=== PATIENT | female | born 1940 | race Caucasian/White ===

== ENCOUNTER 2017-08-08 10:26 | Outpatient (CLI) | payer MEDICARE ==
[~2017-08-08 10:26] MED LIST: ALB0.5UD IH; CALC625T31 PO; CALCIUM PO; CIPR-259 PO; CRAN200C PO; DIVA500T4 PO; ESOM20CA PO; GABA-530 PEG; LEVE750T6 PEG; LEVO125T PO; MAGN400O6 PO; MULT-1085 PEG; SACC250C; SENN-93 PO; SERT25TA PEG
== END 2017-08-08 11:30 | disposition home or self-care (01) ==
LOC: WOUND CARE 10:26
PROVIDERS: ATTEND Surgery
DX: L89.622 Pressure ulcer of left heel, stage 2 (principal); I11.0 Hypertensive heart disease with heart failure; I50.31 Acute diastolic (congestive) heart failure; E03.9 Hypothyroidism, unspecified; F03.90 Unspecified dementia, unspecified severity, without behavioral disturbance, psychotic disturbance, mood disturbance, and anxiety; Z79.82 Long term (current) use of aspirin; Z79.899 Other long term (current) drug therapy; Z96.642 Presence of left artificial hip joint; Z86.73 Personal history of transient ischemic attack (TIA), and cerebral infarction without residual deficits
CPT/HCPCS: 99211; A6021; A6206; A6209; A6446

== ENCOUNTER 2017-08-16 10:55 | Outpatient (CLI) | payer MEDICARE | END 2017-08-16 13:12 | disposition home or self-care (01) | LOC: WOUND CARE 10:55 | PROVIDERS: ATTEND Surgery | DX: L89.622 Pressure ulcer of left heel, stage 2 (principal); I11.0 Hypertensive heart disease with heart failure; I50.31 Acute diastolic (congestive) heart failure; E03.9 Hypothyroidism, unspecified; F03.90 Unspecified dementia, unspecified severity, without behavioral disturbance, psychotic disturbance, mood disturbance, and anxiety; Z79.82 Long term (current) use of aspirin; Z79.899 Other long term (current) drug therapy; Z96.642 Presence of left artificial hip joint; Z86.73 Personal history of transient ischemic attack (TIA), and cerebral infarction without residual deficits | CPT/HCPCS: 99215; A6021; A6206; A6212 ==

== ENCOUNTER 2017-08-30 10:56 | Outpatient (CLI) | payer MEDICARE ==
[~2017-08-30 10:56] MED LIST changes: -CIPR-259 PO
== END 2017-08-30 12:46 | disposition home or self-care (01) ==
LOC: WOUND CARE 10:56 → EDSTATUS 11:00 → WOUND CARE 12:46
PROVIDERS: ATTEND Surgery
DX: L89.622 Pressure ulcer of left heel, stage 2 (principal); I11.0 Hypertensive heart disease with heart failure; I50.31 Acute diastolic (congestive) heart failure; E03.9 Hypothyroidism, unspecified; F03.90 Unspecified dementia, unspecified severity, without behavioral disturbance, psychotic disturbance, mood disturbance, and anxiety; Z79.82 Long term (current) use of aspirin; Z79.899 Other long term (current) drug therapy; Z96.642 Presence of left artificial hip joint; Z86.73 Personal history of transient ischemic attack (TIA), and cerebral infarction without residual deficits
CPT/HCPCS: 99215; A6212

== ENCOUNTER 2017-09-19 08:56 | Day surgery (SDC) | payer MEDICARE ==
[2017-09-19] MEDS: LIDOcaine 2% 5ml jelly ONE (09:55)
== END 2017-09-19 11:30 | disposition home or self-care (01) ==
LOC: WOUND CARE 08:56
PROVIDERS: ATTEND Surgery
DX: L89.622 Pressure ulcer of left heel, stage 2 (principal); I11.0 Hypertensive heart disease with heart failure; I50.31 Acute diastolic (congestive) heart failure; E03.9 Hypothyroidism, unspecified; F03.90 Unspecified dementia, unspecified severity, without behavioral disturbance, psychotic disturbance, mood disturbance, and anxiety; Z79.82 Long term (current) use of aspirin; Z79.899 Other long term (current) drug therapy; Z96.642 Presence of left artificial hip joint; Z86.73 Personal history of transient ischemic attack (TIA), and cerebral infarction without residual deficits
CPT/HCPCS: 11042; A6021; A6206; A6212

== ENCOUNTER 2017-09-25 09:45 | Day surgery (SDC) | payer MEDICARE ==
[2017-09-25] MEDS ORDERED: LIDOcaine 2% 5ml jelly ONE (10:35)
== END 2017-09-25 10:58 | disposition home or self-care (01) ==
LOC: WOUND CARE 09:45
PROVIDERS: ATTEND Surgery
DX: L89.622 Pressure ulcer of left heel, stage 2 (principal); I11.0 Hypertensive heart disease with heart failure; I50.31 Acute diastolic (congestive) heart failure; E03.9 Hypothyroidism, unspecified; F03.90 Unspecified dementia, unspecified severity, without behavioral disturbance, psychotic disturbance, mood disturbance, and anxiety; Z79.82 Long term (current) use of aspirin; Z79.899 Other long term (current) drug therapy; Z96.642 Presence of left artificial hip joint; Z86.73 Personal history of transient ischemic attack (TIA), and cerebral infarction without residual deficits
CPT/HCPCS: 11042; A6021; A6206; A6212

== ENCOUNTER 2017-10-02 09:38 | Day surgery (SDC) | payer MEDICARE ==
[2017-10-02] MEDS ORDERED: LIDOcaine 2% 5ml jelly ONE (10:00)
== END 2017-10-02 11:25 | disposition home or self-care (01) ==
LOC: WOUND CARE 09:38
PROVIDERS: ATTEND Surgery
DX: L89.622 Pressure ulcer of left heel, stage 2 (principal); I11.0 Hypertensive heart disease with heart failure; I50.31 Acute diastolic (congestive) heart failure; E03.9 Hypothyroidism, unspecified; F03.90 Unspecified dementia, unspecified severity, without behavioral disturbance, psychotic disturbance, mood disturbance, and anxiety; Z79.82 Long term (current) use of aspirin; Z79.899 Other long term (current) drug therapy; Z96.642 Presence of left artificial hip joint; Z86.73 Personal history of transient ischemic attack (TIA), and cerebral infarction without residual deficits
CPT/HCPCS: 97597; A6021; A6206

== ENCOUNTER 2017-10-09 09:20 | Outpatient (CLI) | payer MEDICARE | END 2017-10-09 10:19 | disposition home or self-care (01) | LOC: WOUND CARE 09:20 → EDSTATUS 09:30 → WOUND CARE 10:19 | PROVIDERS: ATTEND Surgery | DX: L89.624 Pressure ulcer of left heel, stage 4 (principal); I11.0 Hypertensive heart disease with heart failure; I50.31 Acute diastolic (congestive) heart failure; E03.9 Hypothyroidism, unspecified; F03.90 Unspecified dementia, unspecified severity, without behavioral disturbance, psychotic disturbance, mood disturbance, and anxiety; Z79.82 Long term (current) use of aspirin; Z79.899 Other long term (current) drug therapy; Z96.642 Presence of left artificial hip joint; Z86.73 Personal history of transient ischemic attack (TIA), and cerebral infarction without residual deficits | CPT/HCPCS: 99215; A6021; A6206; A6212 ==

== ENCOUNTER 2017-10-22 09:51 | Outpatient (CLI) | payer MEDICARE | END 2017-10-22 11:03 | disposition home or self-care (01) | LOC: WOUND CARE 09:51 | PROVIDERS: ATTEND Surgery | DX: L89.624 Pressure ulcer of left heel, stage 4 (principal); I11.0 Hypertensive heart disease with heart failure; I50.31 Acute diastolic (congestive) heart failure; E03.9 Hypothyroidism, unspecified; F03.90 Unspecified dementia, unspecified severity, without behavioral disturbance, psychotic disturbance, mood disturbance, and anxiety; Z79.82 Long term (current) use of aspirin; Z79.899 Other long term (current) drug therapy; Z96.642 Presence of left artificial hip joint; Z86.73 Personal history of transient ischemic attack (TIA), and cerebral infarction without residual deficits | CPT/HCPCS: 99211; A6021; A6206; A6212 ==

== ENCOUNTER 2017-10-29 10:05 | Outpatient (CLI) | payer MEDICARE | END 2017-10-29 12:20 | disposition home or self-care (01) | LOC: WOUND CARE 10:05 | PROVIDERS: ATTEND Surgery | DX: L89.624 Pressure ulcer of left heel, stage 4 (principal); I11.0 Hypertensive heart disease with heart failure; I50.31 Acute diastolic (congestive) heart failure; E03.9 Hypothyroidism, unspecified; F03.90 Unspecified dementia, unspecified severity, without behavioral disturbance, psychotic disturbance, mood disturbance, and anxiety; Z79.82 Long term (current) use of aspirin; Z79.899 Other long term (current) drug therapy; Z96.642 Presence of left artificial hip joint; Z86.73 Personal history of transient ischemic attack (TIA), and cerebral infarction without residual deficits | CPT/HCPCS: 99215 ==

== ENCOUNTER 2017-11-21 10:29 | Day surgery (SDC) | payer MEDICARE | END 2017-11-21 11:56 | disposition home or self-care (01) | LOC: WOUND CARE 10:29 → EDSTATUS 10:30 → WOUND CARE 11:56 | PROVIDERS: ATTEND Surgery | DX: L89.624 Pressure ulcer of left heel, stage 4 (principal); I11.0 Hypertensive heart disease with heart failure; I50.31 Acute diastolic (congestive) heart failure; E03.9 Hypothyroidism, unspecified; F03.90 Unspecified dementia, unspecified severity, without behavioral disturbance, psychotic disturbance, mood disturbance, and anxiety; Z79.82 Long term (current) use of aspirin; Z79.899 Other long term (current) drug therapy; Z96.642 Presence of left artificial hip joint; Z86.73 Personal history of transient ischemic attack (TIA), and cerebral infarction without residual deficits | CPT/HCPCS: 97597; A6021; A6206; A6212 ==

== ENCOUNTER 2017-11-28 10:33 | Outpatient (CLI) | payer MEDICARE | END 2017-11-28 11:51 | disposition home or self-care (01) | LOC: WOUND CARE 10:33 | PROVIDERS: ATTEND Surgery | DX: L89.624 Pressure ulcer of left heel, stage 4 (principal); I11.0 Hypertensive heart disease with heart failure; I50.31 Acute diastolic (congestive) heart failure; E03.9 Hypothyroidism, unspecified; F03.90 Unspecified dementia, unspecified severity, without behavioral disturbance, psychotic disturbance, mood disturbance, and anxiety; Z79.82 Long term (current) use of aspirin; Z79.899 Other long term (current) drug therapy; Z96.642 Presence of left artificial hip joint; Z86.73 Personal history of transient ischemic attack (TIA), and cerebral infarction without residual deficits | CPT/HCPCS: 99215; A6196 ==

== ENCOUNTER 2017-12-05 10:30 | Outpatient (CLI) | payer MEDICARE | END 2017-12-05 11:56 | disposition home or self-care (01) | LOC: WOUND CARE 10:30 → EDSTATUS 10:30 → WOUND CARE 11:56 | PROVIDERS: ATTEND Surgery | DX: L89.624 Pressure ulcer of left heel, stage 4 (principal); I11.0 Hypertensive heart disease with heart failure; I50.31 Acute diastolic (congestive) heart failure; E03.9 Hypothyroidism, unspecified; F03.90 Unspecified dementia, unspecified severity, without behavioral disturbance, psychotic disturbance, mood disturbance, and anxiety; Z79.82 Long term (current) use of aspirin; Z79.899 Other long term (current) drug therapy; Z96.642 Presence of left artificial hip joint; Z86.73 Personal history of transient ischemic attack (TIA), and cerebral infarction without residual deficits | CPT/HCPCS: 99215; A6196 ==

== ENCOUNTER 2017-12-12 10:35 | Outpatient (CLI) | payer MEDICARE | END 2017-12-12 11:40 | disposition home or self-care (01) | LOC: WOUND CARE 10:35 | PROVIDERS: ATTEND Surgery | DX: L89.624 Pressure ulcer of left heel, stage 4 (principal); I11.0 Hypertensive heart disease with heart failure; I50.31 Acute diastolic (congestive) heart failure; E03.9 Hypothyroidism, unspecified; F03.90 Unspecified dementia, unspecified severity, without behavioral disturbance, psychotic disturbance, mood disturbance, and anxiety; Z79.82 Long term (current) use of aspirin; Z79.899 Other long term (current) drug therapy; Z96.642 Presence of left artificial hip joint; Z86.73 Personal history of transient ischemic attack (TIA), and cerebral infarction without residual deficits | CPT/HCPCS: 99215; A4649; A6196; A6212 ==

== ENCOUNTER 2017-12-19 10:15 | Day surgery (SDC) | payer MEDICARE ==
[2017-12-19] MEDS ORDERED: LIDOcaine 2% 5ml jelly ONE (10:56)
== END 2017-12-19 11:35 | disposition home or self-care (01) ==
LOC: WOUND CARE 10:15
PROVIDERS: ATTEND Surgery
DX: L89.624 Pressure ulcer of left heel, stage 4 (principal); I11.0 Hypertensive heart disease with heart failure; I50.31 Acute diastolic (congestive) heart failure; E03.9 Hypothyroidism, unspecified; F03.90 Unspecified dementia, unspecified severity, without behavioral disturbance, psychotic disturbance, mood disturbance, and anxiety; Z79.82 Long term (current) use of aspirin; Z79.899 Other long term (current) drug therapy; Z96.642 Presence of left artificial hip joint; Z86.73 Personal history of transient ischemic attack (TIA), and cerebral infarction without residual deficits
CPT/HCPCS: 97597; A4414

== ENCOUNTER 2017-12-24 10:33 | Day surgery (SDC) | payer MEDICARE ==
[2017-12-24] MEDS ORDERED: LIDOcaine 2% 5ml jelly ONE (11:35)
== END 2017-12-24 12:20 | disposition home or self-care (01) ==
LOC: WOUND CARE 10:33
PROVIDERS: ATTEND Surgery
DX: L89.624 Pressure ulcer of left heel, stage 4 (principal); I11.0 Hypertensive heart disease with heart failure; I50.31 Acute diastolic (congestive) heart failure; E03.9 Hypothyroidism, unspecified; F03.90 Unspecified dementia, unspecified severity, without behavioral disturbance, psychotic disturbance, mood disturbance, and anxiety; Z79.82 Long term (current) use of aspirin; Z79.899 Other long term (current) drug therapy; Z96.642 Presence of left artificial hip joint; Z86.73 Personal history of transient ischemic attack (TIA), and cerebral infarction without residual deficits
CPT/HCPCS: 99215; A4414

== ENCOUNTER 2018-01-07 10:42 | Outpatient (CLI) | payer MEDICARE | END 2018-01-07 10:50 | disposition home or self-care (01) | LOC: WOUND CARE 10:42 | PROVIDERS: ATTEND Surgery | DX: L89.624 Pressure ulcer of left heel, stage 4 (principal); I11.0 Hypertensive heart disease with heart failure; I50.31 Acute diastolic (congestive) heart failure; E03.9 Hypothyroidism, unspecified; F03.90 Unspecified dementia, unspecified severity, without behavioral disturbance, psychotic disturbance, mood disturbance, and anxiety; Z79.82 Long term (current) use of aspirin; Z79.899 Other long term (current) drug therapy; Z96.642 Presence of left artificial hip joint; Z86.73 Personal history of transient ischemic attack (TIA), and cerebral infarction without residual deficits | CPT/HCPCS: 99215 ==

== ENCOUNTER 2018-05-01 13:51 | Outpatient (CLI) | payer MEDICARE | END 2018-05-01 23:59 | disposition home or self-care (01) | LOC: RAD 13:51 | PROVIDERS: ATTEND Family Medicine | DX: R13.12 Dysphagia, oropharyngeal phase (principal); M79.672 Pain in left foot; E03.9 Hypothyroidism, unspecified; Z87.891 Personal history of nicotine dependence; Z90.710 Acquired absence of both cervix and uterus | CPT/HCPCS: 74230 ==

== ENCOUNTER 2018-09-02 11:05 | Inpatient (IN) | payer MEDICARE | END 2018-09-04 13:10 | disposition home or self-care (01) | LOC: ER 11:05 → ED HOLD 15:46 → SUR 3N 17:09 | DX: G31.84 Mild cognitive impairment of uncertain or unknown etiology (principal); N39.0 Urinary tract infection, site not specified; E86.0 Dehydration; F03.90 Unspecified dementia, unspecified severity, without behavioral disturbance, psychotic disturbance, mood disturbance, and anxiety; E03.9 Hypothyroidism, unspecified; D64.9 Anemia, unspecified; E87.6 Hypokalemia; M25.552 Pain in left hip; M25.551 Pain in right hip ==

== ENCOUNTER 2020-09-13 17:36 | Emergency (ER) | payer MEDICARE ==
[~2020-09-13] VITALS: Ht 152.4 cm; Wt 45.0 kg
[~2020-09-13 17:36] MED LIST changes: -ALB0.5UD IH; -CALC625T31 PO; -CALCIUM PO; +CIPR-230 PO; +DIVA125T31 PO; -DIVA500T4 PO; -ESOM20CA PO; -GABA-530 PEG; +GABA-530 PO; +LEVE750T PO; -LEVE750T6 PEG; -MAGN400O6 PO; -SACC250C; -SERT25TA PEG; +SERT25TA PO
[2020-09-13 17:44] VITALS: BP 119/101
--- NOTE | 2020-09-13 18:21 | NUR ---
Pt to xray via zachariah.
== END 2020-09-13 20:13 | disposition home or self-care (01) ==
LOC: ER 17:37
DX: M25.551 Pain in right hip (principal); I11.0 Hypertensive heart disease with heart failure; I50.9 Heart failure, unspecified; G89.29 Other chronic pain; Z86.73 Personal history of transient ischemic attack (TIA), and cerebral infarction without residual deficits; Z86.69 Personal history of other diseases of the nervous system and sense organs; Z87.440 Personal history of urinary (tract) infections; Z98.890 Other specified postprocedural states; Z56.0 Unemployment, unspecified; Z88.5 Allergy status to narcotic agent; Z88.8 Allergy status to other drugs, medicaments and biological substances; Z79.2 Long term (current) use of antibiotics; Z79.899 Other long term (current) drug therapy
CPT/HCPCS: 73502; 99284